=== PATIENT | female | born 1960 | race Caucasian/White ===

== ENCOUNTER 2017-08-08 09:41 | Emergency (ER) | payer MEDICAID, OTHER ==
[2017-08-08] MEDS ORDERED: Dexamethasone TAB* 4 MG PO ONE (10:10)
[2017-08-08] MEDS ORDERED: Lidocaine 2% VISCOUS* 15 ML UDC PO ONE (10:10)
--- NOTE | 2017-08-08 10:48 | RAD ---
INDICATION: 4 days shortness of breath. Sore throat. COMPARISON: No relevant prior exams available on the [facility] PACS for comparison. TECHNIQUE: Dual energy PA and routine lateral views of the chest were obtained. REPORT: Clear lungs and pleural spaces. Negative for pneumothorax. The heart, pulmonary vasculature, and mediastinal contours are unremarkable. Unremarkable osseous structures and soft tissue contours. IMPRESSION: No evidence for pneumonia. Negative exam.
--- NOTE | 2017-08-08 11:07 | ED ---
Throat Pain/Nasal Congestion - HPI Summary HPI Summary: 57-year-old female presents with sore throat for the past 4 days. She admits to cough. She denies any chest pressures or shortness of breath. She denies abdominal pain, nausea, vomiting or diarrhea. She denies any ear pressure. She admits to occasional sinus congestion. She has been taking Tylenol with minimal relief. She states her appetite has been normal. She has no medical conditions. No one else is sick. Denies any history of strep. She denies any fevers. she denies any headache or neck stiffness. no photophobia. sore throat is what is bothering her the most. She is not a smoker. no pain or swelling in her calf muscles. - History of Current Complaint Chief Complaint: EDThroatPain Time Seen by Provider: 08/08/17 09:54 - Allergies/Home Medications Allergies/Adverse Reactions: Allergies Allergy/AdvReac Type Severity Reaction Status Date / Time Sulfa (Sulfonamide Allergy Joint Pain Verified 08/08/17 10:23 Antibiotics) PMH/Surg Hx/FS Hx/Imm Hx Endocrine/Hematology History: Reports: Hx Diabetes - DIAGNOSED IN PAST, UNSURE IS ACCURATE Cardiovascular History: Denies: Hx Myocardial Infarction - Surgical History Surgery Procedure, Year, and Place: CYSTS REMOVED Infectious Disease History: No Infectious Disease History: Denies: Traveled Outside the [place] in Last 30 Days - Family History Known Family History: Positive: Unknown - Social History Alcohol Use: None Substance Use Type: Reports: None Smoking Status (MU): Never Smoked Tobacco Review of Systems Negative: Fever Positive: Sore Throat Negative: Chest Pain Positive: Cough. Negative: Shortness Of Breath All Other Systems Reviewed And Are Negative: Yes Physical Exam Triage Information Reviewed: Yes Vital Signs On Initial Exam: Initial Vitals Temp Pulse Resp BP Pulse Ox 98.6 F 86 16 146/64 97 08/08/17 09:48 08/08/17 09:48 08/08/17 09:48 08/08/17 09:48 08/08/17 09:48 Vital Signs Reviewed: Yes Appearance: Positive: Well-Appearing Skin: Positive: Warm, Dry Head/Face: Positive: Normal Head/Face Inspection Eyes: Positive: Normal, EOMI, ROSALIA, Conjunctiva Clear ENT: Positive: Pharyngeal erythema, Uvula midline, Other - soft palate symmetric. Negative: Tonsillar swelling, Tonsillar exudate, Trismus, Muffled voice Neck: Positive: Supple, Nontender, No Lymphadenopathy Respiratory/Lung Sounds: Positive: Clear to Auscultation, Breath Sounds Present Cardiovascular: Positive: Normal, RRR Abdomen Description: Positive: Nontender, Soft Bowel Sounds: Positive: Present Musculoskeletal: Positive: Normal Neurological: Positive: Normal Psychiatric: Positive: Normal Diagnostics - Vital Signs Vital Signs Temp Pulse Resp BP Pulse Ox 08/08/17 09:48 98.6 F 86 16 146/64 97 - Laboratory Lab Results: Lab Results 08/08/17 Range/Units 09:52 Group A Strep Rapid Negative (Negative) Lab Statement: Any lab studies that have been ordered have been reviewed, and results considered in the medical decision making process. - Radiology chest Xray Interpretation: No Acute Changes Radiology Interpretation Completed By: Radiologist Re-Evaluation - Re-Evaluation First Eval Re-Evaluation Time: 11:11 Change: Improved Comment: pain gone after magic mouth wash EENT Course/Dx - Course Course Of Treatment: 57-year-old female presents with sore throat for the past 4 days. She admits to cough. She denies any chest pressures or shortness of breath. She denies abdominal pain, nausea, vomiting or diarrhea. She denies any ear pressure. She admits to occasional sinus congestion. She has been taking Tylenol with minimal relief. She states her appetite has been normal. She has no medical conditions. No one else is sick. Denies any history of strep. On exam pharynx erythematous. Uvula midline. Soft palate symmetric. Lungs clear to auscultation. Strep negative. Chest x-ray normal. We will treat with Magic mouthwash and Decadron. Patient understands agrees with plan. - Differential Diagnoses Differential Diagnoses: Pharyngitis, Tonsilitis, URI/Bronchitis, Other - pneumonia - Diagnoses Provider Diagnoses: Upper respiratory infection Discharge - Sign-Out/Discharge Documenting (check all that apply): Discharge - Discharge Plan Condition: Good Disposition: HOME Prescriptions: Dexamethasone TAB* [Decadron TAB*] 4 mg PO DAILY #4 tab Magic Mouth Was-FARZANEH/MAAL/LIDO* 5 ml SWISH SPIT QID #100 ml Patient Education Materials: Upper Respiratory Infection (ED) Referrals: [facility] [place] [facility] REFERR[facility] [Outside] Additional Instructions: Magic mouthwash 5ml swish and spit can use 4x a day Take steroid once a day for 4 more days Take Tylenol for pain every 6 hours Can gargle salt water Can use cough drops or products such as cloraseptic spray Establish care with primary care physician Return to ED if develop any new or worsening symptoms - Billing Disposition and Condition Condition: GOOD Disposition: HOME
[2017-08-08 11:22] VITALS: BP 122/74
== END 2017-08-08 11:22 | disposition home or self-care (01) ==
LOC: ED 09:41
DX: J06.9 Acute upper respiratory infection, unspecified (principal); R05 Cough; J02.9 Acute pharyngitis, unspecified
CPT/HCPCS: 71046; 87651; 99282; J8540

== ENCOUNTER 2017-11-27 14:44 | Emergency (ER) | payer OTHER ==
[2017-11-27 15:20] VITALS: BP 131/73
--- NOTE | 2017-11-27 15:46 | UC ---
Skin Complaint HPI - HPI Summary HPI Summary: 57 yo female presents with diffuse rash for the past 3 days. She tells me that she was out in the heat (100F) a few days ago and later that day developed a rash on her back and abdomen that was itchy. Since that time the rash has spread to her b/l arms and continues to itch. She has been applying alcohol and hydrogen peroxide multiple times a day. Denies fever or chills. 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 Onset/Duration: Gradual Onset Onset Severity: Moderate Current Severity: Moderate Pain Intensity: 6 Pain Scale Used: 0-10 Numeric - Allergy/Home Medications Allergies/Adverse Reactions: Allergies Allergy/AdvReac Type Severity Reaction Status Date / Time Sulfa (Sulfonamide Allergy Joint Pain Verified 11/27/17 15:20 Antibiotics) Review of Systems Constitutional: Negative Skin: Rash Eyes: Negative ENT: Negative Respiratory: Negative Cardiovascular: Negative Neurovascular: Negative Neurological: Negative Psychological: Negative All Other Systems Reviewed And Are Negative: Yes PMH/Surg Hx/FS Hx/Imm Hx - Additional Past Medical History Additional PMH: None - Surgical History Surgical History: Yes Surgery Procedure, Year, and Place: CYSTS REMOVED - Family History Known Family History: Positive: Unknown - Social History Occupation: Employed Full-time Lives: With Family Alcohol Use: None Substance Use Type: None Smoking Status (MU): Never Smoked Tobacco Physical Exam - Summary Physical Exam Summary: GENERAL: NAD. WDWN. No pain distress. SKIN: Back and abdomen with mildly erythematous rash with excoriations. Very dry in appearance. Similar smaller areas on her b/l arms. No streaking, bleeding , or drainage. NECK: Supple. Nontender. No lymphadenopathy. CHEST: No accessory muscle use. Breathing comfortably and in no distress. CV: Pulses intact NEURO: Alert. CN II-XII grossly intact. PSYCH: Age appropriate behavior. Triage Information Reviewed: Yes Vital Signs: Initial Vital Signs Temp 98.6 F 11/27/17 15:14 Pulse 76 11/27/17 15:14 Resp 16 11/27/17 15:14 BP 131/73 11/27/17 15:14 Pulse Ox 99 11/27/17 15:14 Vital Signs Reviewed: Yes Course/Dx - Course Course Of Treatment: Suspect dyshidrotic eczema worsening due to her use of drying products hydrogen peroxide and alcohol. I advised her to stop doing this and will rx for prednisone and steroid cream. F/u if symptoms persist. - Diagnoses Provider Diagnoses: dyshidrotic eczema Discharge - Sign-Out/Discharge Documenting (check all that apply): Patient Departure - Discharge Plan Condition: Stable Disposition: HOME Prescriptions: predniSONE TAB* [Deltasone 20 MG TAB*] 20 mg PO DAILY #12 tab Triamcinolone 0.1% CREAM (NF) [Kenalog 0.1% Cream (NF)] 1 applic TOPICAL BID #1 tube Patient Education Materials: Dyshidrotic Eczema (ED) Referrals: No Primary Care Phys,NOPCP [Primary Care Provider] - Additional Instructions: If you develop a fever, shortness of breath, chest pain, new or worsening symptoms - please call your PCP or go to the ED. - Billing Disposition and Condition Condition: STABLE Disposition: Home
== END 2017-11-27 16:13 | disposition home or self-care (01) ==
LOC: UCEAST 14:44
DX: L30.1 Dyshidrosis [pompholyx] (principal); Z88.2 Allergy status to sulfonamides
CPT/HCPCS: 99212; G0463